=== PATIENT | male | born 1995 | race Caucasian/White ===

== ENCOUNTER 2017-05-10 16:53 | Emergency (ER) | payer OTHER ==
[~2017-05-10 16:53] MED LIST: ULTRAM50 MG PO
[2017-05-10 17:09] LABS: EOSINOPHIL (%) 0.4 % (0-5); HEMATOCRIT 46.4 % (38.0-50.0); IMMATURE GRANULOCYTE (%) 0.3 % (0.0-0.7); INSTRUMENT ABS NEUTROPHIL CT 5.8 K/uL; LYMPHOCYTE COUNT 3.4 K/uL (1.0-2.8); MCH 28.1 PG (29.0-34.0); MCHC 35.3 G/DL (30.0-36.0); MCV 79.6 FL (86-99); MEAN PLAT.VOLUME 8.5 uM^3 (9.0-12.4); MONOCYTE (%) 5.8 % (3-12); MONOCYTE COUNT 0.6 K/uL (0-0.8); NEUTROPHIL COUNT 5.8 K/uL (1.8-6.4); PLATELET COUNT 283 K/uL (156-360); RBC DIS.WIDTH-CV 11.9 % (11.8-14.6); RBC DIS.WIDTH-SD 33.7 % (39-53); RED BLOOD COUNT 5.83 M/uL (4.00-5.50); WHITE BLOOD COUNT 9.9 K/uL (4.1-10.2)
[2017-05-10 17:20] LABS: AMYLASE 62 IU/L (1-118); CHLORIDE 104 mEq/L (99-109); POTASSIUM 3.6 mEq/L (3.7-5.4); SODIUM 140 mEq/L (136-147)
[2017-05-10 17:21] LABS: GLUCOSE 97 mg/dL (70-99)
[2017-05-10 17:23] LABS: ANION GAP 15 MEQ/L (2-14)
[2017-05-10 17:25] LABS: GFR ESTIMATE (CALCULATED) > 59 mL/min/; SERUM ETHYL ALCOHOL < 10 mg/dL
[2017-05-10 17:26] LABS: UREA NITROGEN (BUN) 12 mg/dL (9-23)
[2017-05-10 17:28] LABS: LIPASE 29 U/L (1.0-51.0)
[2017-05-10] MEDS ORDERED: TYLENOL REGULA325 MG PO (19:24)
[2017-05-10] MEDS ORDERED: KEFLEX500 MG PO (19:24)
== END 2017-05-10 20:40 | disposition home or self-care (01) ==
LOC: TRA 16:53
PROVIDERS: Emergency Medicine
DX: S81.011A Laceration without foreign body, right knee, initial encounter (principal); S70.211A Abrasion, right hip, initial encounter; S50.311A Abrasion of right elbow, initial encounter; S00.01XA Abrasion of scalp, initial encounter; V23.4XXA Motorcycle driver injured in collision with car, pick-up truck or van in traffic accident, initial encounter; Y92.411 Interstate highway as the place of occurrence of the external cause; S80.212A Abrasion, left knee, initial encounter; S40.211A Abrasion of right shoulder, initial encounter; Z23 Encounter for immunization
CPT/HCPCS: 70450; 71010; 71260; 72125; 72129; 72132; 73030; 73560; 74177; 80048; 81003; 82150; 83690; 85025; 86850; 86900; 86901; 99281; 99285; G0480; J2270; J2405